=== PATIENT | male | born 1995 | race Native Hawaiian/Other Pacific Islander ===

== ENCOUNTER 2018-08-18 14:08 | Emergency (ER) | payer OTHER, SELFPAY ==
[2018-08-18 14:20] VITALS: BP 126/64; PULSE 66; RESP 18; TEMP 36.7; O2SAT 100
--- NOTE | 2018-08-18 14:43 | DI.RAD.S_ITS ---
PROCEDURE: XR FOOT LT MIN 3V INDICATIONS: injury, foot pain TECHNIQUE: 3 views of the foot were acquired. COMPARISON: None. FINDINGS: Bones: No fractures or dislocations. No suspicious bony lesions. Soft tissues: No tibiotalar joint effusion. Achilles tendon appears normal. IMPRESSION: No trauma found. If there is clinical concern for presence of hidden fracture follow-up by delayed plain films or advanced imaging, such as CT or MRI, could be obtained. The normal superimposition of multiple osseous margins in this area reduces the study's ability to detect nondisplaced fractures. Dictated by: Jesus Pedraza M.D. on 08/18/2018 at 15:20 Approved by: Jesus Pedraza M.D. on 08/18/2018 at 15:21
--- NOTE | 2018-08-18 14:53 | ED_ITS ---
HPI - Extremity Injury (Lower) General Chief Complaint: Extremity Injury, Lower Stated Complaint: Left Leg Time Seen by Provider: 08/18/18 14:23 Source: patient Mode of arrival: ambulatory Limitations: no limitations History of Present Illness HPI Narrative: Patient comes to the emergency department after having a dryer fallen his left foot at work. Patient states the dryer was stacked on top of a washing machine and was in a box. Somebody was trying to move the dryer and lost hold on and fell onto the patient's left foot. Patient states the foot fall a little numb afterward, but he was able to walk around on it without a problem. He states that after couple of hours, he began to feel some pain in the foot, and has been limping. He denies ankle pain. He states some of the pain from his foot shoots up into his left lower leg. Patient denies any other injuries. He denies prior problems with his foot. Related Data Previous Rx's Medication Instructions Recorded baclofen 10 mg PO TID #45 tab 06/23/17 naproxen [Naprosyn] 500 mg PO BID #60 tab 06/23/17 Allergies Allergy/AdvReac Type Severity Reaction Status Date / Time No Known Allergies Allergy Uncoded 08/19/18 12:57 Review of Systems Constitutional Denies chills, Denies fever(s), Denies lethargy and Denies weakness Eyes Denies change in vision, Denies eye discharge, Denies irritation and Denies loss of vision ENT Ears, Nose, Mouth, and Throat: Denies change in voice, Denies neck pain and Denies sore throat Cardiovascular Denies chest pain, Denies irregular heart rhythm, Denies lightheadedness, Denies palpitations, Denies dyspnea, Denies dyspnea on exertion and Denies orthopnea Respiratory Denies cough, Denies dyspnea, Denies dyspnea on exertion and Denies wheezing Gastrointestinal Gastrointestinal: Denies abdominal pain, Denies change in bowel habits, Denies diarrhea, Denies nausea and Denies vomiting Genitourinary Denies hematuria, Denies flank pain, Denies urinary incontinence and Denies urinary urgency Musculoskeletal Denies neck pain Comments: Left foot pain Integumentary/Breasts Denies pruritus, Denies erythema, Denies rash and Denies wounds Neurologic Denies confusion, Denies loss of vision and Denies weakness Psychiatric Denies anxiety, Denies confusion, Denies depression, Denies homicidal ideation and Denies suicidal ideation Endocrine Denies palpitations Hematologic/Lymphatic Denies easy bruising Allergic/Immunologic Denies wheezing [facility] Medical History Healthy adult (Acute) Social History (System 08/19/18 @ 12:57 by Patience Karimi) Smoking Status: Never smoker Social History Smoking Status: Never smoker Exam Initial Vital Signs Initial Vital Signs: Vital Signs Temperature 98.1 F 08/18/18 14:20 Pulse Rate 66 08/18/18 14:20 Respiratory Rate 18 08/18/18 14:20 Blood Pressure 126/64 08/18/18 14:20 Pulse Oximetry 100 08/18/18 14:20 Const General: cooperative and well developed Nutritional Appearance: well nourished Orientation: alert, awake, oriented x3 and not confused HENMT Head: normocephalic and atraumatic Ears: external ears normal and TM's normal bilaterally Nose: external nose normal and No nasal discharge Face and sinus: sinuses nontender, face symmetric, no sinus tenderness and No dry mucous membranes Mouth: oral mucosae normal and moist mucous membranes Teeth and gingiva: dentition normal Throat: tonsils normal and uvula midline Eyes General: appearance normal, both eyes and all related structures Eyelids: eyelids normal Conjunctivae: conjunctivae normal Sclera: sclerae normal Pupils: PERRL EOM: EOM intact bilaterally Neck Neck: normal visual inspection, trachea midline, No lymphadenopathy, No midline deformity and No JVD Lymphatic: No lymphedema Chest Chest: normal inspection of the chest Resp Effort & Inspection: normal respiratory effort, able to speak in complete sentences, no respiratory distress and no use of accessory muscles Cardio Rate: regular rate Rhythm: regular rhythm Pulses: normal peripheral pulses Back/Spine/Pelvis Cervical Spine: cervical ROM normal Skin General: no rashes or lesions noted, No jaundice and No petechiae Other: No trauma to left foot or lower leg skin Neuro General: alert, oriented x3, gait normal and no focal motor deficits Speech: speech normal Extrem General: no clubbing, cyanosis or edema, no pedal edema and no calf tenderness Other: Patient has mildly decreased range of motion of his left ankle, stating that it causes some increase in pain in his left foot. Patient has some moderate tenderness over the dorsum of his left foot. No deformity. Mild edema is noted. Dorsalis pedis pulse intact. Patient has full passive range of motion at the left ankle. No tenderness of the left tibia. Psych Appearance: well kempt Mental Status: mental status grossly normal Attitude: cooperative Thought Content: normal and suicidality Judgment: judgment good Course Course Narrative: Patient was worked up with x-ray series of his left foot, which was negative. We have discussed symptomatic management of the injury, as well as indications for follow-up. We have also discussed the usual indications for return. Patient may weight bear as tolerated, and has been offered crutches. Orders Ordered: ED Orders 08/18/18 14:43 XR foot LT min 3V Stat Vital Signs - 8 hr 08/18/18 14:20 Temperature 98.1 F Pulse Rate 66 Respiratory Rate 18 Blood Pressure 126/64 Pulse Oximetry 100 MDM - Extremity Injury (Lower) Medical Records Attestation: I reviewed the patient's medical records. Imaging Data Foot x-ray: Radiologist's impression: PROCEDURE: XR FOOT LT MIN 3V INDICATIONS: injury, foot pain TECHNIQUE: 3 views of the foot were acquired. COMPARISON: None. FINDINGS: Bones: No fractures or dislocations. No suspicious bony lesions. Soft tissues: No tibiotalar joint effusion. Achilles tendon appears normal. IMPRESSION: No trauma found. If there is clinical concern for presence of hidden fracture follow-up by delayed plain films or advanced imaging, such as CT or MRI, could be obtained. The normal superimposition of multiple osseous margins in this area reduces the study's ability to detect nondisplaced fractures. Dictated by: Jesus Pedraza M.D. on 08/18/2018 at 15:20 Approved by: Jesus Pedraza M.D. on 08/18/2018 at 15:21 Discharge Plan Departure Patient Disposition: Home Clinical Impression: Foot sprain Qualifiers: Encounter type: initial encounter Laterality: left Qualified Code(s): S93.602A - Unspecified sprain of left foot, initial encounter Contusion of foot Qualifiers: Encounter type: initial encounter Laterality: left Qualified Code(s): S90.32XA - Contusion of left foot, initial encounter Discharge Date/Time: 08/18/18 15:45 Interventions: ED Discharge Assessment Last Done: 08/18/18 15:42 Instructions: DI for Foot Sprain Activity Restrictions/Additional Instructions: Your x-rays look good. No evidence of broken bones is seen. You may bear weight on the foot, as tolerated. Please use crutches, if needed. Use ice, Tylenol, and ibuprofen to help with the discomfort. Please follow up with your primary doctor for further concerns. You should notice that your symptoms steadily improve over the next couple of weeks. Prescriptions: No Action baclofen 10 MG tablet 10 mg PO TID Qty: 45 RF: 1 naproxen [Naprosyn] 500 MG tablet 500 mg PO BID Qty: 60 RF: 1 Referrals: [facility] [Provider Group]
[2018-08-18 15:42] VITALS: PULSE 69; RESP 17; O2SAT 99
== END 2018-08-18 15:45 | disposition home or self-care (01) ==
PROVIDERS: Emergency Provider Emergency Medicine
DX: S93.602A Unspecified sprain of left foot, initial encounter (principal); S90.32XA Contusion of left foot, initial encounter; W20.8XXA Other cause of strike by thrown, projected or falling object, initial encounter; Y99.0 Civilian activity done for income or pay
CPT/HCPCS: 73630; 99282; 99283

== ENCOUNTER → 2021-10-15 17:12 | Outpatient (CLI) | payer OTHER, MEDICAID, SELFPAY ==
--- NOTE | 2021-10-15 17:14 | DI.RAD.S_ITS ---
PROCEDURE: XR KNEE LT 3V INDICATIONS: pain TECHNIQUE: 3 views of the knee were acquired. COMPARISON: None. FINDINGS: Bones: No fractures or dislocations. No suspicious bony lesions. No definite or substantial degenerative changes identified. Soft tissues: No joint effusion. No suspicious soft tissue calcifications. IMPRESSION: No acute osseous abnormality. If symptoms persist, follow-up radiographs and/or MRI may be helpful for further evaluation. Dictated by: Rony Betancourt M.D. on 10/16/2021 at 10:02 Approved by: Rony Betancourt M.D. on 10/16/2021 at 10:11
== END ==
PROVIDERS: PCP Family Medicine; Referring Provider Family Medicine; Visit Provider Family Medicine
DX: M25.562 Pain in left knee (principal); G89.29 Other chronic pain
CPT/HCPCS: 73562

== ENCOUNTER → 2023-09-10 13:19 | Outpatient (CLI) | payer OTHER, SELFPAY ==
--- NOTE | 2023-09-10 13:21 | DI.RAD.S_ITS ---
PROCEDURE: XR CHEST 2V INDICATIONS: severe wheezing bilateral x 1.5 weeks TECHNIQUE: 2 views of the chest were acquired. COMPARISON: None. FINDINGS: Surgical changes and devices: None. Lungs and pleura: Mild perihilar bronchial wall thickening bilaterally, right greater than left. No focal consolidation, effusion, or pneumothorax. Mediastinum: Mediastinal contours are normal. Heart size is normal. Bones and chest wall: No suspicious bony abnormalities. Soft tissues appear unremarkable. IMPRESSION: Bronchial wall thickening suggesting bronchitis or reactive airways disease. Dictated by: Nory Bowen M.D. on 09/10/2023 at 21:20 Approved by: Nory Bowen M.D. on 09/10/2023 at 21:21
== END ==
PROVIDERS: PCP Family Medicine; Referring Provider Physician Assistant; Visit Provider Physician Assistant
DX: J06.9 Acute upper respiratory infection, unspecified (principal)
CPT/HCPCS: 71046

== ENCOUNTER → 2024-01-09 07:30 | Outpatient (CLI) | payer OTHER, SELFPAY ==
--- NOTE | 2024-01-09 07:31 | DI.MRI.S_ITS ---
PROCEDURE: MR SHOULDER RT WO CON INDICATIONS: ongoing pain despite PT TECHNIQUE: Noncontrast oblique coronal T2 fast spin echo with fat saturation, oblique sagittal T1 spin echo and T2 fast spin echo with fat saturation, axial T1 spin echo and T2 fast spin echo with fat saturation through the shoulder. COMPARISON: None. FINDINGS: Image quality: Excellent. Rotator cuff: The supraspinatus, infraspinatus, teres minor, and subscapularis tendons are intact. The rotator cuff musculature is normal in signal intensity and bulk. Bones and bursae: No acute trabecular bone injury or fracture. Likely early chronic traction cystic changes of the posterior superior humeral head. No focal high-grade glenohumeral cartilage defect is seen. There are mild degenerative changes at the acromioclavicular joint with mild subchondral edema. Trace fluid is seen in the subacromial/subdeltoid bursa. There is no significant glenohumeral effusion. Capsule and soft tissues: Nondisplaced tearing of the posterior superior labrum with small lobular paralabral cysts extending medially over the glenoid rim measuring up to 5 mm. No signs of acute or chronic denervation changes in the supraspinatus or infraspinatus muscles. The tear may extend into the superior and anterior superior labrum. Proximal biceps long head tendon demonstrates mild tendinosis. There is mild partial effacement of the fat signal in the rotator interval. The anterior band of the inferior glenohumeral ligament appears mildly thickened. IMPRESSION: 1. Nondisplaced tearing of the posterior superior labrum with suspected extension into the superior and anterior superior labrum. Small paralabral cysts posterior superiorly measuring up to 5 mm. 2. Mild proximal biceps long head tendinosis. 3. Rotator cuff tendons are intact. 4. Mild subchondral edema at the acromioclavicular joint may be related to mild degenerative changes versus mild chronic repetitive stress. Trace subacromial/subdeltoid bursal fluid. 5. Partial effacement of the rotator interval fat and mild thickening of the inferior glenohumeral ligament are nonspecific, but can be seen in the setting of the clinical syndrome of adhesive capsulitis. Approved by: Rony Boswell M.D. on 01/11/2024 at 9:27
== END ==
LOC: MRI 07:31
PROVIDERS: PCP Family Medicine; Referring Provider Family Medicine; Visit Provider Family Medicine
DX: S43.431A Superior glenoid labrum lesion of right shoulder, initial encounter (principal); M25.511 Pain in right shoulder; M25.411 Effusion, right shoulder
CPT/HCPCS: 73221